=== PATIENT | male | born 1990 | race American Indian/Alaskan Native ===

== ENCOUNTER 2017-06-01 19:17 | Emergency (ER) | payer SELFPAY ==
[2017-06-01] MEDS ORDERED: BOOSTRIX IM ONE (22:44)
[2017-06-01] MEDS ORDERED: MOTRIN PO ONE (22:44)
--- NOTE | 2017-06-01 22:45 | Emergency Department Report ---
- General Chief complaint: Skin/Abscess/Foreign Body Stated complaint: BUTTOCK ABSCESS Time Seen by Provider: 06/01/17 22:07 Source: patient Mode of arrival: Ambulatory Limitations: No Limitations - History of Present Illness Initial comments: This is a 26-year-old male that presents to the ED c/o of boil to the left mid buttocks region x7 days. Patient stated has been having discharge with pus. Patient denies any fever, chills, headache, stiff neck, CP, SOB, numbness, tingling. Patient associated symptoms include pain that is described as aching with level of 10/10. Patient denies any trauma to region. Denies any allergies. Denies PMH. complaint: abscess/boil -: Gradual, week(s) (1) Tetanus Up to Date: no Location: buttocks Severity: mild Severity scale (0 -10): 10 Quality: aching Consistency: constant Improves with: none Worsens with: none Context: none Associated symptoms: denies other symptoms Treatments Prior to Arrival: none - Related Data Previous Rx's Medication Instructions Recorded Last Taken Type Clindamycin [Clindamycin CAP] 450 mg PO Q8HR 5 Days 06/01/17 Unknown Rx Ibuprofen [Motrin 600 MG tab] 600 mg PO Q8H PRN #20 tablet 06/01/17 Unknown Rx Allergies Allergy/AdvReac Type Severity Reaction Status Date / Time No Known Allergies Allergy Unverified 06/01/17 20:43 Abscess Boil HPI - HPI Chief Complaint: Skin/Abscess/Foreign Body Stated Complaint: BUTTOCK ABSCESS Time Seen by Provider: 06/01/17 22:07 Home Medications: Previous Rx's Medication Instructions Recorded Last Taken Type Clindamycin [Clindamycin CAP] 450 mg PO Q8HR 5 Days 06/01/17 Unknown Rx Ibuprofen [Motrin 600 MG tab] 600 mg PO Q8H PRN #20 tablet 06/01/17 Unknown Rx Allergies/Adverse Reactions: Allergies Allergy/AdvReac Type Severity Reaction Status Date / Time No Known Allergies Allergy Unverified 06/01/17 20:43 ED Review of Systems ROS: Stated complaint: BUTTOCK ABSCESS Other details as noted in HPI Constitutional: denies: chills, fever Eyes: denies: eye pain, eye discharge, vision change ENT: denies: ear pain, throat pain Respiratory: denies: cough, shortness of breath, wheezing Cardiovascular: denies: chest pain, palpitations Endocrine: no symptoms reported Gastrointestinal: denies: abdominal pain, nausea, diarrhea Genitourinary: denies: urgency, dysuria Musculoskeletal: denies: back pain, joint swelling, arthralgia Skin: denies: rash, lesions Neurological: denies: headache, weakness, paresthesias Psychiatric: denies: anxiety, depression Hematological/Lymphatic: denies: easy bleeding, easy bruising ED Past Medical Hx - Past Medical History Previous Medical History?: No - Surgical History Past Surgical History?: No - Social History Smoking Status: Never Smoker Substance Use Type: Alcohol - Medications Home Medications: Home Medications Medication Instructions Recorded Confirmed Last Taken Type Clindamycin [Clindamycin CAP] 450 mg PO Q8HR 5 Days 06/01/17 Unknown Rx Ibuprofen [Motrin 600 MG tab] 600 mg PO Q8H PRN #20 tablet 06/01/17 Unknown Rx ED Physical Exam - General Limitations: No Limitations General appearance: alert, in no apparent distress - Head Head exam: Present: atraumatic, normocephalic, normal inspection - Eye Eye exam: Present: normal appearance, PERRL, EOMI. Absent: scleral icterus, conjunctival injection, nystagmus, periorbital swelling, periorbital tenderness Pupils: Present: normal accommodation - ENT ENT exam: Present: normal exam, normal orophraynx, mucous membranes moist, TM's normal bilaterally, normal external ear exam - Neck Neck exam: Present: normal inspection, full ROM. Absent: tenderness, meningismus, lymphadenopathy, thyromegaly - Respiratory Respiratory exam: Present: normal lung sounds bilaterally. Absent: respiratory distress, wheezes, rales, rhonchi, stridor, chest wall tenderness, accessory muscle use, decreased breath sounds, prolonged expiratory - Cardiovascular Cardiovascular Exam: Present: regular rate, normal rhythm, normal heart sounds. Absent: bradycardia, tachycardia, irregular rhythm, systolic murmur, diastolic murmur, rubs, gallop - GI/Abdominal GI/Abdominal exam: Present: soft, normal bowel sounds. Absent: distended, tenderness, guarding, rebound, rigid - Rectal Rectal exam: Present: deferred - Extremities Exam Extremities exam: Present: normal inspection, full ROM, normal capillary refill. Absent: tenderness, pedal edema, joint swelling, calf tenderness - Back Exam Back exam: Present: normal inspection, full ROM. Absent: tenderness, CVA tenderness (R), CVA tenderness (L), muscle spasm, paraspinal tenderness, vertebral tenderness, rash noted - Neurological Exam Neurological exam: Present: alert, oriented X3, CN II-XII intact, normal gait, reflexes normal - Psychiatric Psychiatric exam: Present: normal affect, normal mood - Skin Skin exam: Present: warm, dry, intact, normal color, other (0.5 centimeter open boil with minimal purulent drainage. No swelling noted. No erythema. Tender to touch. No fluctuance.). Absent: rash ED Course Vital Signs 06/01/17 20:38 Temperature 99.2 F Pulse Rate 97 H Respiratory 18 Rate Blood Pressure 138/93 O2 Sat by Pulse 100 Oximetry - Reevaluation(s) Reevaluation #1: 06/01/17 22:47 Patient is with girlfriend and speaking in full sentences with no signs of distress. ED Medical Decision Making - Medical Decision Making ED course: This is a 26-year-old male that presents with open draining boil 1- patient was examined by myself. A 0.5 centimeter opened wound with purulent drainage has been noted. No surrounding erythema or cellulitis as noted. Incision and drainage has not been performed due to no fluctuance or swelling to the area. Wound is open and draining. Tender to touch. I instructed patient to apply sterile 4 x 4 to the area at all times and wash area with soap and water and reapply 4x4 with tape. Area has been marked with a permanent marker and patient was instructed to observe symptoms of increased redness or swelling past the marker and if does to return to emergency room as soon as possible. Patient received clindamycin at the time of discharge and was instructed to finish full course of antibiotics. At time time of discharge, the patient does not seem toxic or ill in appearance. No acute signs of distress noted. Patient agrees to discharge treatment plan of care. No further questions noted by the patient. Critical care attestation.: If time is entered above; I have spent that time in minutes in the direct care of this critically ill patient, excluding procedure time. ED Disposition Clinical Impression: Boil of buttock Disposition: - TO HOME OR SELFCARE Is pt being admited?: No Does the pt Need Aspirin: No Condition: Stable Instructions: Acute Wound Care (ED), Abscess (ED), Clindamycin (On the skin) Additional Instructions: Observe symptoms of increased redness or swelling past the marked area and if does to return to emergency room as soon as possible. Follow-up with primary care doctor in 3-5 days or symptoms worsen such as increased swelling, redness, pus, fever, chills, drainage return to emergency room as soon as possible Take course of antibiotics as prescribed. Prescriptions: Clindamycin [Clindamycin CAP] 450 mg PO Q8HR 5 Days Ibuprofen [Motrin 600 MG tab] 600 mg PO Q8H PRN #20 tablet PRN Reason: Pain Referrals: PRIMARY CARE, [Primary Care Provider] - 3-5 Days AILEEN LAND JR, MD [Staff Physician] - 3-5 Days [facility] [Outside] - 3-5 Days [facility] [Outside] - 3-5 Days Forms: Work/School Release Form(ED)
[2017-06-01 23:49] VITALS: BP 136/90
== END 2017-06-01 23:54 | disposition home or self-care (01) ==
LOC: ED 19:17
DX: L02.32 Furuncle of buttock (principal)
CPT/HCPCS: 90471; 90715; 99282

== ENCOUNTER 2018-03-04 15:57 | Emergency (ER) | payer OTHER ==
--- NOTE | 2018-03-04 22:33 | Emergency Department Report ---
Abscess Boil HPI - HPI Chief Complaint: Skin/Abscess/Foreign Body Stated Complaint: BUMP ON BUTT Time Seen by Provider: 03/04/18 19:55 Duration: >1 Week ( and May 2017) Location: Other (buttocks) Severity: Moderate (09/01) History: Yes Pain (09/01 to skin left buttock), Yes Previous History (patient had this issue started 05/2017 and was seen in this ER 06/01/2017 and treated with clindamycin), No Fever, No Purulent Drainage, No Numbness, No Foreign Body , No Insect Bite HPI: Patient here reports that he has a bump on his left buttocks with some discharge. Pain is 10 out of 10 and feels sore. Worse with sitting better with standing up. Patient was here on 06/01/2017 and was diagnosed with abscess at the same site but he said that it didn't went away. He was given clindamycin and ibuprofen. Immunizations up-to-date. Denies any fever or chills. Denies any nausea or vomiting. Patient was referred to have a procedure for removal and also for biopsy but he said he didn't follow-up. Home Medications: Previous Rx's Medication Instructions Recorded Last Taken Type Clindamycin [Clindamycin CAP] 450 mg PO Q8HR 5 Days capsule 06/01/17 Unknown Rx Acetaminophen/Codeine [Tylenol 1 tab PO Q6H PRN #12 tab 03/04/18 Unknown Rx /Codeine # 3 tab] Clindamycin [Clindamycin CAP] 300 mg PO Q8H 7 Days #21 cap 03/04/18 Unknown Rx Ibuprofen [Motrin 600 MG tab] 600 mg PO Q8H PRN #15 tablet 03/04/18 Unknown Rx Allergies/Adverse Reactions: Allergies Allergy/AdvReac Type Severity Reaction Status Date / Time No Known Allergies Allergy Verified 06/01/17 22:57 ED Review of Systems ROS: Stated complaint: BUMP ON BUTT Other details as noted in HPI Comment: All other systems reviewed and negative Constitutional: no symptoms reported Respiratory: no symptoms reported Cardiovascular: denies: chest pain, palpitations, dyspnea on exertion, edema, syncope, paroxysmal nocturnal dyspnea Gastrointestinal: denies: nausea, vomiting Genitourinary: denies: dysuria, hematuria Musculoskeletal: denies: back pain Skin: other (a separate report bump on buttocks) Neurological: denies: headache ED Past Medical Hx - Past Medical History Previous Medical History?: Yes Additional medical history: Abnormal growth on buttocks - Surgical History Past Surgical History?: No - Family History Family history: no significant - Social History Smoking Status: Never Smoker Substance Use Type: Alcohol - Medications Home Medications: Home Medications Medication Instructions Recorded Confirmed Last Taken Type Clindamycin [Clindamycin CAP] 450 mg PO Q8HR 5 Days capsule 06/01/17 Unknown Rx Acetaminophen/Codeine [Tylenol 1 tab PO Q6H PRN #12 tab 03/04/18 Unknown Rx /Codeine # 3 tab] Clindamycin [Clindamycin CAP] 300 mg PO Q8H 7 Days #21 cap 03/04/18 Unknown Rx Ibuprofen [Motrin 600 MG tab] 600 mg PO Q8H PRN #15 tablet 03/04/18 Unknown Rx ED Abscess Boil Physical Exam - Exam General: Vital signs noted. No distress. Alert and acting appropriately. This is a 27-year-old male well-nourished well-developed in no acute distress. Front/Back of Body, Lg (Color): 1 - Patient with 0.5 cm, pink growth to left buttocks, medial lateral. Mild tenderness to palpate. No drainage noted. Indurated and fluctuance. return. Immunizations up-to-date. Exam: Yes Tenderness (mild tenderness to left buttock), Yes Fluctuance (0.5 cm 2 indurated.), Yes Normal Neurologic Exam, Yes Normal Circulation, No Surrounding Cellulites/Erythema, No Lymphangitis, No Crepitation, No Heart Murmur Exam: Lungs: Clear to auscultate bilaterally, no rhonchi wheezes or rales. Extremity: No Clubbing, cyanosis or edema. +2 pulses to all extremities I & D Note - I & D Note I & D Note: Procedure: Area cleansed with normal saline, followed by iodine and normal saline. 1 mL of 0.25 Marcaine instilled in affected areas the left buttocks. 2 areas of 0.5 cm indurated, fluctuant. #18-gauge needle used to make small opening in and notice sanguinous returned without any pus. Area is tender to palpate. Area cleansed with iodine and normal saline and sterile dry dressing placed a fight. ED Course Vital Signs 03/04/18 03/04/18 16:35 19:21 Temperature 99.1 F 98.9 F Pulse Rate 97 H Respiratory 16 Rate Blood Pressure 145/82 O2 Sat by Pulse 100 Oximetry - Reevaluation(s) Reevaluation #1: 03/04/18 22:58 Procedure note on detailed. Critical care attestation.: If time is entered above; I have spent that time in minutes in the direct care of this critically ill patient, excluding procedure time. ED Medical Decision Making - Medical Decision Making ED course: Patient here for the second time for abnormal growth to buttocks. He said it's a bump and he was seen here on 06/01/2017 for similar issues and was diagnosed with abscess and referred to have growth removed surgically and for also biopsy. He was put on clindamycin and ibuprofen. Patient said it never got better. Physical findings for 0.5 cm 2 growth to buttocks area that I attempted to drain without any pus. Please see procedure note for details. Tetanus vaccine is up-to-date. Patient did not follow-up as instructed in 2017. He said he doesn't have a primary care but he has insurance so I discussed with him that he is given the need to follow up with it security architect Dr. brush to have a biopsy done of the site and also some [facility] for primary care. He voiced understanding and discharged home with his family member. Discharge home her prescription for clindamycin, ibuprofen and Tylenol 3. ED Disposition Clinical Impression: Abnormal skin growth, Mass of skin Disposition: DC-01 TO HOME OR SELFCARE Is pt being admited?: No Does the pt Need Aspirin: No Condition: Stable Instructions: Skin biopsy (ED) Additional Instructions: You have abnormal skin growth on the left buttocks that he will need to follow up with it security architect for biopsy. I will also give you referral to surgeon. Please follow up with outside [facility] for primary care visits. Take antibiotic as prescribed Do not drive or operate heavy machinery while taking Tylenol No. 3 as this medication causes drowsiness Prescriptions: Acetaminophen/Codeine [Tylenol /Codeine # 3 tab] 1 tab PO Q6H PRN #12 tab PRN Reason: moderate to severe pain Clindamycin [Clindamycin CAP] 300 mg PO Q8H 7 Days #21 cap Ibuprofen [Motrin 600 MG tab] 600 mg PO Q8H PRN #15 tablet PRN Reason: Pain Referrals: LEONIE BURSH MD [Staff Physician] - 03/05/18 RIMMA SAVAGE DO [Staff Physician] - 03/05/[address] [facility] [Outside] - 03/08/18 Forms: Accompanied Note, Work/School Release Form(ED)
[2018-03-05 00:17] VITALS: BP 142/80
== END 2018-03-04 23:05 | disposition home or self-care (01) ==
LOC: ED 15:57
DX: L02.31 Cutaneous abscess of buttock (principal)